=== PATIENT | female | born 1950 | race Caucasian/White ===

== ENCOUNTER → 2016-06-29 09:32 | Outpatient (CLI) | payer MEDICARE, BC ==
[2015-03-23 11:10] VITALS: BMI 21.1
[~2016-06-29 09:32] MED LIST: CELEXA40 MG PO; EFFEXOR75 MG PO; HYDROCODONE-APA1 TAB PO; STOOL SOFTENER240 MG PO; TOPROL XL25 MG PO; ZOCOR20 MG PO
== END | disposition home or self-care (01) ==
LOC: D.MRI 09:32
DX: M54.2 Cervicalgia (principal); M54.5 Low back pain

== ENCOUNTER → 2017-03-29 16:32 | Outpatient (CLI) | payer MEDICARE, BC ==
[2015-03-23 11:10] VITALS: BMI 21.1
== END | disposition home or self-care (01) ==
LOC: D.MAMMO 10:15
DX: Z12.31 Encounter for screening mammogram for malignant neoplasm of breast (principal)

== ENCOUNTER → 2018-01-03 10:07 | Outpatient (CLI) | payer MEDICARE, BC ==
[2015-03-23 11:10] VITALS: BMI 21.1
== END | disposition home or self-care (01) ==
LOC: D.MRI 10:07
DX: M25.362 Other instability, left knee (principal)

== ENCOUNTER 2019-08-28 09:00 | Outpatient (CLI) | payer MEDICARE, BC ==
[2015-03-23 11:10] VITALS: BMI 21.1
== END 2019-08-28 10:00 | disposition home or self-care (01) ==
LOC: D.MAMMO 09:00
PROVIDERS: ATTEND Family Medicine
DX: Z12.31 Encounter for screening mammogram for malignant neoplasm of breast (principal)

== ENCOUNTER 2019-10-24 16:32 | Emergency (ER) | payer MEDICARE, BC ==
[~2019-10-24] VITALS: Ht 152.4 cm; Wt 54.5 kg
[2019-10-24 17:07] VITALS: Ht 152.4 cm; Wt 54.5 kg
[2019-10-24] MEDS ORDERED: AUGMENTIN 875-11 TAB PO (17:50)
[2019-10-24 17:54] LABS: CALC OSMOLALITY 277 mosm/kg (275-300); CALCIUM 8.8 mg/dL (8.5-10.1); CARBON DIOXIDE 30.9 mmol/L (21.0-32.0); CHLORIDE - SERUM 104 mmol/L (98-107); CREATININE - SERUM 0.8 mg/dL (0.6-1.3); GLUCOSE 92 mg/dL (74-106); POTASSIUM - SERUM 3.6 mmol/L (3.5-5.1); SODIUM 139 mmol/L (136-145); UREA NITROGEN 12 mg/dL (7-18); eGFR NON AFRICAN AMERICAN 75 mL/min (90-120)
[2019-10-24 17:58] LABS: BASOPHILS 0.2 % (0-2); EOSINOPHILS 0.5 % (0-7); HEMOGLOBIN 13.4 g/dL (12-16); IMMATURE GRANULOCYTES 0.3 % (0-5); LYMPHOCYTES 16.7 % (15-50); MCH 30.7 pg (26.0-34.0); MCHC 33.5 g/dL (31.0-37.0); MCV 91.5 fL (80.0-100.0); MONOCYTES 9.8 % (2-11); NEUTROPHILS 72.5 % (40-80); RBC 4.37 10x6/uL (4.00-5.40); RDW 12.8 % (11.5-14.5)
[2019-10-24 17:59] LABS: PLATELET COUNT 180 10x3/uL (130-400)
[2019-10-24 18:00] LABS: ALBUMIN 3.8 g/dL (3.4-5.0); ALKALINE PHOSPHATASE 112 U/L (30-120); ALT (SGPT) 98 U/L (10-68); BILIRUBIN - TOTAL 0.73 mg/dL (0.2-1.3); PROTEIN - SERUM 6.8 g/dL (6.4-8.2)
[2019-10-24 18:21] VITALS: BP 117/78
== END 2019-10-24 18:22 | disposition home or self-care (01) ==
LOC: D.ER 16:32
PROVIDERS: Family Medicine
DX: L03.012 Cellulitis of left finger (principal); M79.642 Pain in left hand; S61.052A Open bite of left thumb without damage to nail, initial encounter; W55.01XA Bitten by cat, initial encounter; Y93.9 Activity, unspecified; Y92.9 Unspecified place or not applicable; I10 Essential (primary) hypertension